=== PATIENT | female | born 1990 | race Caucasian/White ===

== ENCOUNTER 2020-11-19 09:52 | Emergency (ER) | payer OTHER ==
[~2020-11-19 09:52] MED LIST: ATOMOXETINE HCL40 MG PO; BACTRIM DS TAB1 EACH PO; BUSPIRONE HCL15 MG PO; DIFLUCAN150 M1 PO; LITHIUM CARBON150 MG PO; LITHIUM300 MG PO; MACROBID100 MG PO; METRONIDAZOLE500 MG PO; PALIPERIDONE E1.5 MG PO; PAXIL10 MG PO; TOPAMAX25 MG PO
[2020-11-19 10:21] LABS: BASOPHIL 0.4 % (0-2); EOSINOPHIL 0.8 % (0-5); HCT 44.3 % (37.0-47.0); HGB 15.1 g/dl (12.5-16.0); LYMPHOCYTE 21.9 % (15-48); MCH 32.4 pg (25.0-31.0); MCHC 34.1 g/dL (32.0-36.0); MCV 95.1 fL (78.0-100.0); MONOCYTE 8.5 % (0-12); NEUTROPHIL 67.4 % (41-80); NRBC 0; PLT 249 K/uL (150-400); RBC 4.66 M/uL (4.20-5.40); RDW 12.6 % (11.5-14.0); WBC 14.5 K/uL (4.0-10.5)
[2020-11-19 10:51] LABS: ALBUMIN 4.4 g/dL (3.4-5.0); ALKALINE PHOSHATASE 89 U/L (46-116); ALT 28 U/L (14-59); AST 31 U/L (15-37); BILIRUBIN - TOTAL 0.4 mg/dL (0.2-1.0); BUN 15 mg/dL (7-18); BUN/CREAT RATIO (CALC) 22.4 RATIO; CHLORIDE 104 mmol/L (98-107); CO2 (BICARBONATE) 26 mmol/L (21-32); CREATININE 0.67 mg/dL (0.51-0.95); GLOBULIN (CALCULATION) 3.5 g/dL; GLUCOSE 82 mg/dL (74-106); POTASSIUM 4.5 mmol/L (3.5-5.1); TOTAL PROTEIN 7.9 g/dL (6.4-8.2)
== END 2020-11-19 11:29 | disposition home or self-care (01) ==
LOC: FER 09:52
PROVIDERS: Emergency Medicine
DX: F15.129 Other stimulant abuse with intoxication, unspecified (principal); F31.9 Bipolar disorder, unspecified; F17.200 Nicotine dependence, unspecified, uncomplicated; Z79.899 Other long term (current) drug therapy
CPT/HCPCS: 36415; 80053; 80178; 83735; 85025; 99285; G0480; J3486